=== PATIENT | male | born 1985 | race African-American/Black ===

== ENCOUNTER 2017-08-18 20:18 | Emergency (ER) | payer SELFPAY ==
[~2017-08-18] VITALS: Ht 172.7 cm; Wt 63.5 kg
[2017-08-18 21:26] LABS: HEMOGLOBIN 13.3 g/dL (13.5-17.5); LYMPHOCYTES % (AUTO) 29.1 % (22.0-44.0); MEAN CORPUSCULAR HEMOGLOBIN 32.3 pg (26.0-34.0); MEAN CORPUSCULAR HGB CONC 34.2 G/dL (31.0-37.0); MEAN CORPUSCULAR VOLUME 95 fL (80-100); MONOCYTES # (AUTO) 0.4 K/uL (0.1-1.0); MONOCYTES % (AUTO) 6.3 % (2.0-9.0); NEUTROPHILS # (AUTO) 3.8 K/uL (1.8-7.7); NEUTROPHILS % (AUTO) 53.6 % (40.0-70.0); PLATELET COUNT (AUTO) 227 K/uL (150-450); RED BLOOD CELL COUNT(AUTO) 4.12 MIL/uL (4.50-5.90); RED CELL DISTRIBUTION WIDTH 14.3 % (11.5-14.5)
[2017-08-18 21:33] LABS: ANION GAP 3 mmol/L (8-16); CALCIUM, TOTAL 8.3 mg/dL (8.8-10.5); CARBON DIOXIDE 32 mmol/L (22-29); CHLORIDE 104 mmol/L (98-107); CREATININE 1.05 mg/dL (0.60-1.30); GLOMERULAR FILTR. RATE CALC > 60 mL/min (>60); POTASSIUM 3.9 mmol/L (3.5-5.1); SODIUM SERUM 139 mmol/L (136-145); UREA NITROGEN, BLOOD 11 mg/dL (7-18)
[2017-08-18 21:40] LABS: ALANINE AMINOTRANSFERASE 29 U/L (12-78); ALBUMIN 3.4 g/dL (3.4-5.0); ASPARTATE AMINOTRANSFERASE 19 U/L (15-37); BILIRUBIN,TOTAL 0.2 mg/dL (0.1-1.0)
[2017-08-18 22:38] VITALS: BP 136/85
== END 2017-08-18 22:55 | disposition left against medical advice (07) ==
LOC: EMS 20:19
DX: Z53.21 Procedure and treatment not carried out due to patient leaving prior to being seen by health care provider (principal)
CPT/HCPCS: 36415; 80053; 80307; 85025; 99281; G0480

== ENCOUNTER 2017-08-19 14:24 | Inpatient (IN) | payer MEDICAID ==
[~2017-08-19] VITALS: Ht 172.7 cm; Wt 57.7 kg
[2017-08-19 15:23] LABS: BASOPHILS # (AUTO) 0.14 K/uL (0.00-0.20); BASOPHILS % (AUTO) 2.6 % (0.0-2.0); EOSINOPHILS % (AUTO) 11.49 % (1.0-6.0); HEMATOCRIT 40.5 % (41-53); HEMOGLOBIN 13.6 g/dL (13.5-17.5); LYMPHOCYTES # (AUTO) 1.5 K/uL (1.0-4.8); LYMPHOCYTES % (AUTO) 28.9 % (22.0-44.0); MEAN CORPUSCULAR HEMOGLOBIN 31.7 pg (26.0-34.0); MEAN CORPUSCULAR HGB CONC 33.5 G/dL (31.0-37.0); MEAN CORPUSCULAR VOLUME 95 fL (80-100); MONOCYTES # (AUTO) 0.4 K/uL (0.1-1.0); MONOCYTES % (AUTO) 7.3 % (2.0-9.0); NEUTROPHILS # (AUTO) 2.6 K/uL (1.8-7.7); NEUTROPHILS % (AUTO) 49.7 % (40.0-70.0); PLATELET COUNT (AUTO) 221 K/uL (150-450); RED BLOOD CELL COUNT(AUTO) 4.28 MIL/uL (4.50-5.90); RED CELL DISTRIBUTION WIDTH 13.9 % (11.5-14.5); WHITE BLOOD COUNT (AUTO) 5.3 K/uL (4.5-11.0)
[2017-08-19 15:39] LABS: ANION GAP 5 mmol/L (8-16); CALCIUM, TOTAL 8.5 mg/dL (8.8-10.5); CARBON DIOXIDE 31 mmol/L (22-29); CHLORIDE 104 mmol/L (98-107); CREATININE 1.06 mg/dL (0.60-1.30); GLOMERULAR FILTR. RATE CALC > 60 mL/min (>60); POTASSIUM 3.5 mmol/L (3.5-5.1); SODIUM SERUM 140 mmol/L (136-145); UREA NITROGEN, BLOOD 8 mg/dL (7-18)
[2017-08-19 15:45] LABS: ALANINE AMINOTRANSFERASE 36 U/L (12-78); ALBUMIN 3.5 g/dL (3.4-5.0); ASPARTATE AMINOTRANSFERASE 26 U/L (15-37); BILIRUBIN,TOTAL 0.4 mg/dL (0.1-1.0); TOTAL PROTEIN, SERUM 7.4 g/dL (6.4-8.2)
[2017-08-19] MEDS ORDERED: ZOLPIDEM TARTRATE 10 MG TABLET PO PRN (16:15)
[2017-08-19 18:53] LABS: APPEARANCE,URINE TURBID (CLEAR); GLUCOSE, URINE (UA) NEGATIVE (NEGATIVE); KETONES,URINE NEGATIVE (NEGATIVE); LEUKOCYTE ESTERASE ,URINE NEGATIVE (NEGATIVE); OCCULT BLOOD,URINE NEGATIVE (NEGATIVE); PH,URINE 8.5 (5.0-8.0); PROTEIN,URINE POS 1+ (NEGATIVE)
[2017-08-19 18:59] LABS: ADD UA MICROSCOPIC YES
[2017-08-19 19:00] LABS: RBC,URINE None Seen /HPF (0-2); WBC,URINE 0-2 /HPF (0-5)
[2017-08-19 19:01] LABS: AMORPHOUS SEDIMENT,UR Many /LPF (None Seen); SQUAMOUS EPITHELIAL CELL,UR None Seen /LPF (None Seen)
[2017-08-19] MEDS: HALOPERIDOL 5 MG TABLET PO PRN (20:43)
[2017-08-19] MEDS: LORazepam 2 MG TABLET PO PRN (20:44)
[2017-08-19 20:51] VITALS: BP 131/79
[2017-08-19] MEDS ORDERED: INFLUENZA VIRUS VACCINE QVS 2017-18 (3YR+)/PF 60 MCG/0.5 ML SYRINGE IM ONE (21:00)
[2017-08-19] MEDS ORDERED: DiphenhydrAMINE HCL 50 MG/ML VIAL IM ONE (22:00)
[2017-08-19] MEDS ORDERED: LORazepam 2 MG/ML VIAL IM ONE (22:00)
[2017-08-19] MEDS ORDERED: HALOPERIDOL LACTATE 5 MG/ML VIAL IM ONE (22:00)
[2017-08-20 07:18] LABS: CHOL/HDL RATIO 2.8 (4.2-7.3)
[2017-08-20 09:53] VITALS: BP 140/96
[2017-08-20] MEDS: LORazepam 2 MG TABLET PO PRN (16:17)
[2017-08-20] MEDS: HALOPERIDOL 5 MG TABLET PO PRN (16:17)
[2017-08-20 17:58] VITALS: BP 119/67
[2017-08-20] MEDS: HALOPERIDOL 5 MG TABLET PO SCH (18:37)
[2017-08-20] MEDS: BENZTROPINE MESYLATE 0.5 MG TABLET PO SCH (18:37)
[2017-08-20] MEDS ORDERED: ACETAMINOPHEN 325 MG TABLET PO PRN (19:45)
[2017-08-20] MEDS ORDERED: IBUPROFEN 400 MG TABLET PO PRN (19:45)
[2017-08-21 01:49] VITALS: BP 132/110
[2017-08-21 07:19] LABS: THYROID STIMULATING HORMONE 0.71 uIU/mL (0.36-3.74)
[2017-08-21 07:48] LABS: HEMOGLOBIN A1C 5.2 % (4.5-6.2)
[2017-08-21 08:30] VITALS: BP 126/65
[2017-08-21] MEDS: HALOPERIDOL 5 MG TABLET PO SCH ×2 (09:58→17:33)
[2017-08-21] MEDS: BENZTROPINE MESYLATE 0.5 MG TABLET PO SCH ×2 (09:58→17:32)
[2017-08-21 16:00] VITALS: BP 122/72
[2017-08-21] MEDS: LORazepam 2 MG TABLET PO PRN (17:32)
[2017-08-22 08:30] VITALS: BP 110/59
[2017-08-22] MEDS: HALOPERIDOL 5 MG TABLET PO SCH ×2 (09:06→17:33)
[2017-08-22] MEDS: BENZTROPINE MESYLATE 0.5 MG TABLET PO SCH ×2 (09:06→17:32)
[2017-08-22 17:28] VITALS: BP 136/62
[2017-08-23] MEDS: HALOPERIDOL 5 MG TABLET PO SCH (08:06)
[2017-08-23] MEDS: BENZTROPINE MESYLATE 0.5 MG TABLET PO SCH (08:06)
[2017-08-23 08:30] VITALS: BP 119/73
[2017-08-23] MEDS ORDERED: HALO5 PO (09:59)
[2017-08-23] MEDS ORDERED: BENZ0.5T6 PO (09:59)
== END 2017-08-23 10:25 | disposition home or self-care (01) | DRG 750 ==
LOC: EMS 14:29 → 3EI 17:24 → 3EC 22:11
PROVIDERS: ADMIT Psychiatry & Neurology Psychiatry; ATTEND Psychiatry & Neurology Psychiatry
DX: F25.0 Schizoaffective disorder, bipolar type (principal); Z59.0 Homelessness; D64.9 Anemia, unspecified; F41.9 Anxiety disorder, unspecified; F17.210 Nicotine dependence, cigarettes, uncomplicated; Z71.6 Tobacco abuse counseling
CPT/HCPCS: 83036; 84443; 99285; 99406; G0480; J1200; J1630; J2060